=== PATIENT | female | born 1935 | race Caucasian/White ===

== ENCOUNTER → 2017-03-17 | Outpatient (CLI) | payer OTHER ==
[~2017-03-17] VITALS: Ht 161.3 cm; Wt 65.9 kg
[~2017-03-17] MED LIST: ACTOS45 MG PO; ATORVASTATIN CA20 MG PO; CALCIUM + D SO1 EACH PO; CALCIUM + VITA1 EAC2 PO; CALCIUM CITRAT200 MG PO; CITRUS CALCIUM1 EACH PO; GARLIC1000 MG PO; GLUCOSA-CHOND-1 EACH PO; IRON325 M1 PO; JANUMET 50/51 TABLET PO; LEVOTHYROXINE88 MCG PO; LORTAB 5-325 M1 EACH PO; LUMIGAN 0.50 DROP/22 BOTH EYES; MULTIVITAMIN1 EAC2 PO; OCUVITE TABLET1 EACH PO; TRIBENZOR 40-51 EAC4 PO; VITAMIN B12-FO1 EACH PO; VITAMIN B122500 MCG PO; VITAMIN E400 UNIT PO
[2017-03-17 11:17] VITALS: BP 151/70
== END | disposition home or self-care (01) ==
LOC: IVINF 11:00
DX: M81.0 Age-related osteoporosis without current pathological fracture (principal); T50.995A Adverse effect of other drugs, medicaments and biological substances, initial encounter; Z88.8 Allergy status to other drugs, medicaments and biological substances
CPT/HCPCS: 96365; J3489